=== PATIENT | female | born 1955 | race Caucasian/White ===

== ENCOUNTER → 2016-10-22 | Outpatient (CLI) | payer OTHER | LOC: MC.RAD 13:39 | DX: Z12.31 Encounter for screening mammogram for malignant neoplasm of breast (principal) ==

== ENCOUNTER → 2017-06-12 | Outpatient (CLI) | payer BC | LOC: COL.RAD 10:12 | DX: I70.0 Atherosclerosis of aorta (principal); R10.11 Right upper quadrant pain ==

== ENCOUNTER → 2017-06-19 | Outpatient (CLI) | payer BC | LOC: COL.RAD 06:08 | DX: R10.11 Right upper quadrant pain (principal) | CPT/HCPCS: A9537 ==

== ENCOUNTER → 2017-11-15 | Outpatient (CLI) | payer BC | LOC: MC.RAD 14:40 | DX: Z12.31 Encounter for screening mammogram for malignant neoplasm of breast (principal) ==

== ENCOUNTER 2018-10-14 13:23 | Emergency (ER) | payer BC ==
[~2018-10-14] VITALS: Ht 157.5 cm; Wt 52.7 kg
[2018-10-14 13:31] VITALS: TEMP 97.6
[2018-10-14] MEDS ORDERED: PRAVACHOL10 MG PO (14:24)
[2018-10-14] MEDS ORDERED: NEXIUM 40MG40 MG PO (14:24)
[2018-10-14] MEDS ORDERED: NORCO 325 MG-51 TAB PO (14:44)
[2018-10-14 15:07] VITALS: BP 150/79; PULSE 76
== END 2018-10-14 15:46 | disposition home or self-care (01) ==
LOC: COL.ER 13:23
DX: S42.201A Unspecified fracture of upper end of right humerus, initial encounter for closed fracture (principal); W01.0XXA Fall on same level from slipping, tripping and stumbling without subsequent striking against object, initial encounter
CPT/HCPCS: J1170; J2405

== ENCOUNTER → 2019-02-26 | Outpatient (CLI) | payer BC ==
[~2019-02-26] MED LIST: NEXIUM 40MG40 MG PO; NORCO 325 MG-51 TAB PO; PRAVACHOL10 MG PO
== END ==
LOC: MC.RAD 13:10
DX: Z12.31 Encounter for screening mammogram for malignant neoplasm of breast (principal)

== ENCOUNTER → 2020-04-01 | Outpatient (CLI) | payer MEDICARE | LOC: MC.RAD 14:00 | DX: Z12.31 Encounter for screening mammogram for malignant neoplasm of breast (principal) ==

== ENCOUNTER → 2021-08-11 | Outpatient (CLI) | payer MEDICARE | LOC: MC.RAD 11:15 | DX: Z12.31 Encounter for screening mammogram for malignant neoplasm of breast (principal) ==

== ENCOUNTER → 2023-10-23 | Outpatient (CLI) | payer MEDICARE | LOC: MC.RAD 13:39 | DX: Z12.31 Encounter for screening mammogram for malignant neoplasm of breast (principal) ==

== ENCOUNTER 2024-02-02 07:53 | Emergency (ER) | payer MEDICARE ==
[~2024-02-02] VITALS: Ht 157.5 cm; Wt 50.9 kg
[2024-02-02 07:59] VITALS: TEMP 98.5
[2024-02-02] MEDS ORDERED: NS 500 ML IV ONE ×2 (08:45→10:00)
[2024-02-02] MEDS ORDERED: Ketorolac 15 MG/ML VIAL IV ONE (08:45)
[2024-02-02 08:58] LABS: BASO % 0.4 % (0.0-2.0); EOS % 0.1 % (0.0-4.0); GRAN # 6.2 K/mm3 (1.4-6.5); GRAN % 86.1 % (42.2-75.2); HEMOGLOBIN 11.8 g/dl (12.5-16.0); LYMPH # 0.4 K/mm3 (1.2-3.4); LYMPH % 5.8 % (20.0-51.0); MEAN CELL VOLUME 95 fl (80.0-100.0); MEAN CORPUSCULAR HEMOGLOBIN 31 pg (27-31); MEAN CORPUSCULAR HGB CONC 33 g/dl (33.0-37.0); MEAN PLATELET VOLUME 9.3 fl (7.4-10.4); MONO # 0.5 K/mm3 (0.1-0.6); MONO % 7.2 % (1.7-9.3); PLATELET COUNT 196 K/mm3 (130-400); RED BLOOD COUNT 3.83 M/mm3 (4.10-5.30); REDCELL DISTRIBUTION WIDTH-CV 12.5 % (11.5-14.5)
[2024-02-02] MEDS ORDERED: Ondansetron 4 MG/2 ML VIAL IV ONE (09:00)
[2024-02-02 09:01] LABS: HEMATOCRIT 36.3 % (37.0-47.0)
[2024-02-02 09:10] LABS: BILIRUBIN,TOTAL 0.9 mg/dL (0.2-1.2); CALCIUM 9.4 mg/dL (8.4-10.2); CREATININE, serum 0.82 mg/dL (0.57-1.11); POTASSIUM 4.1 mEq/L (3.5-4.5); TOTAL PROTEIN 8.1 g/dl (6.2-8.1)
[2024-02-02 11:11] LABS: URINE APPEARANCE CLEAR (CLEAR/HAZY); URINE BLOOD NEGATIVE (NEGATIVE); URINE COLOR YELLOW (YELLOW); URINE GLUCOSE NEGATIVE (NEGATIVE); URINE KETONE 1+ (NEGATIVE); URINE NITRATE NEGATIVE (NEGATIVE); URINE PROTEIN(semi-quant) 2+ (NEGATIVE)
[2024-02-02 11:31] LABS: COLLECTION METHOD CLEAN CATCH
[2024-02-02] MEDS ORDERED: MACROBID 1100 MG/CAP PO (12:23)
[2024-02-02 12:43] VITALS: BP 133/65; PULSE 88
== END 2024-02-02 12:50 | disposition home or self-care (01) ==
LOC: COL.ER 07:53
PROVIDERS: Emergency Medicine
DX: N39.0 Urinary tract infection, site not specified (principal); M54.6 Pain in thoracic spine; Z88.0 Allergy status to penicillin
CPT/HCPCS: J1885; J2405; J7040